=== PATIENT | female | born 1965 | race Caucasian/White ===

== ENCOUNTER 2018-07-23 10:11 | Inpatient (IN) | payer SELFPAY ==
[2018-07-23] MEDS ORDERED: NORMAL SALINE 1000 ML 1,000 ML IV ONE (10:26)
[2018-07-23] MEDS ORDERED: ONDANSETRON HCL INJ/PF 4 MG/2 ML SDV IV ONE (10:27)
--- NOTE | 2018-07-23 10:28 | ER Document Report ---
ED Medical Screen (RME) - General Chief Complaint: Abdominal Pain Stated Complaint: ABDOMINAL PAIN Time Seen by Provider: 07/23/18 10:19 Mode of Arrival: Ambulatory Information source: Patient Notes: This is a 52-year-old female with no significant medical problems who presents to the emergency room with lower abdominal pain, rectal pain and complaints that she passed pus (via rectum) in her sleep. She denies any danielle fever but reports nausea, chills and she looks in distress in the triage area. She states that her symptoms first started 5 weeks ago when she was evaluated at [facility] 1 week ago and was treated conservatively with nausea medicines. Patient states that the symptoms have just worsened. TRAVEL OUTSIDE OF THE [place] IN LAST 30 DAYS: No - Related Data Allergies/Adverse Reactions: No Known Allergies Allergy (Unverified 07/23/18 10:13) Past Medical History - Social History Chew tobacco use (# tins/day): No Frequency of alcohol use: Occasional Drug Abuse: None Renal/ Medical History: Denies: Hx Peritoneal Dialysis Physical Exam - Vital signs Vitals: Temp Pulse Resp BP Pulse Ox 97.9 F 103 H 14 115/86 H 98 07/23/18 10:18 07/23/18 10:18 07/23/18 10:18 07/23/18 10:18 07/23/18 10:18 Course - Vital Signs Vital signs: Temp Pulse Resp BP Pulse Ox 97.9 F 103 H 14 115/86 H 98 07/23/18 10:18 07/23/18 10:18 07/23/18 10:18 07/23/18 10:18 07/23/18 10:18
[2018-07-23 10:48] LABS: ABSOLUTE BASOPHILS # (AUTO) 0.1 10^3/uL (0.0-0.2); ABSOLUTE EOSINOPHILS # (AUTO) 0.1 10^3/uL (0.0-0.6); ABSOLUTE LYMPHOCYTES (AUTO) 1.9 10^3/uL (0.5-4.7); ABSOLUTE MONOCYTES (AUTO) 0.8 10^3/uL (0.1-1.4); ABSOLUTE NEUT (AUTO) 7.7 10^3/uL (1.7-8.2); BASOPHILS % (AUTO) 0.7 % (0-2); EOSINOPHILS % (AUTO) 0.9 % (0-6); HEMOGLOBIN 12.4 g/dL (12.0-15.5); LYMPHOCYTES % (AUTO) 18.1 % (13-45); MEAN CORPUSCULAR HEMOGLOBIN 28.1 pg (27.0-33.4); MEAN CORPUSCULAR HGB CONC 32.7 g/dL (32.0-36.0); MEAN CORPUSCULAR VOLUME 86 fl (80-97); MONOCYTES % (AUTO) 7.9 % (3-13); PLATELET COUNT 481 10^3/uL (150-450); RED BLOOD COUNT 4.43 10^6/uL (3.72-5.28); RED CELL DISTRIBUTION WIDTH 17.2 % (11.5-14.0); SEGMENTED NEUTROPHILS % (AUTO) 72.4 % (42-78); TOTAL CELLS COUNTED % (AUTO) 100 %; WHITE BLOOD COUNT 10.6 10^3/uL (4.0-10.5)
[2018-07-23 10:55] LABS: INTERNATIONAL RATION (INR) 1.11; PROTHROMBIN TIME 14.9 SEC (11.4-15.4)
[2018-07-23 11:09] LABS: ALANINE AMINOTRANSFERASE 42 U/L (9-52); ALBUMIN 4.1 g/dL (3.5-5.0); ALKALINE PHOSPHATASE 101 U/L (38-126); ANION GAP 14 (5-19); ASPARTATE AMINO TRANSFERASE 53 U/L (14-36); BILIRUBIN,DIRECT 0.5 mg/dL (0.0-0.4); BILIRUBIN,TOTAL 0.6 mg/dL (0.2-1.3); BLOOD UREA NITROGEN 5 mg/dL (7-20); CALCIUM 9.6 mg/dL (8.4-10.2); CARBON DIOXIDE 25 mmol/L (22-30); CHLORIDE 100 mmol/L (98-107); GLUCOSE 117 mg/dL (75-110); LIPASE 95.5 U/L (23-300); POTASSIUM 4.3 mmol/L (3.6-5.0); TOTAL PROTEIN 7.6 g/dL (6.3-8.2)
[2018-07-23 11:50] LABS: APPEARANCE,URINE CLOUDY; BILIRUBIN,URINE NEGATIVE (NEGATIVE); COLOR,URINE YELLOW; GLUCOSE, URINE NEGATIVE (NEGATIVE); KETONES,URINE NEGATIVE (NEGATIVE); LEUKOCYTE ESTERASE,URINE LARGE (NEGATIVE); NITRITE,URINE NEGATIVE (NEGATIVE); PROTEIN,URINE NEGATIVE (NEGATIVE); URINE SPECIFIC GRAVITY 1.003; UROBILINOGEN,URINE NEGATIVE mg/dL (<2.0)
[2018-07-23] MEDS ORDERED: CEFTRIAXONE 1 GM/D5W RTU 1 GM/50 ML RTUPB IV ONE (12:20)
--- NOTE | 2018-07-23 12:23 | ER Document Report ---
ED General - General Chief Complaint: Abdominal Pain Stated Complaint: ABDOMINAL PAIN Time Seen by Provider: 07/23/18 10:19 Mode of Arrival: Ambulatory TRAVEL OUTSIDE OF THE [place] IN LAST 30 DAYS: No - HPI Notes: Patient is a 52-year-old female no significant past medical history who presents the emergency department complaining of generalized abdominal pain primarily to her lower abdomen, rectal pain, nausea/vomiting/diarrhea, increased frequency of urination. Patient states that her abdominal symptoms have been ongoing for the last 5 weeks. Urinary symptoms started over the last week. She is still eating and drinking without difficulty, but does have a decreased p.o. intake. Patient states that she may have had pus from her rectum and her sleep. Patient states that she does notice occasional blood. No menstrual cycle in 10 years. She was seen at [facility] emergency department 1 week ago and was given diarrhea medicine. Denies drug allergies. She has not noticed any other vaginal odor or discharge. Denies any headache, fever, neck pain, URI, sore throat, chest pain, palpitations, syncope, cough, shortness of breath, wheeze, dyspnea, loss of control of bowel or bladder, numbness/tingling, saddle anesthesia, muscle paralysis/weakness, or rash. - Related Data Allergies/Adverse Reactions: No Known Allergies Allergy (Unverified 07/23/18 10:13) Past Medical History - General Information source: Patient - Social History Smoking Status: Current Every Day Smoker Chew tobacco use (# tins/day): No Frequency of alcohol use: Occasional Drug Abuse: None Family History: Reviewed & Not Pertinent Patient has suicidal ideation: No Patient has homicidal ideation: No Renal/ Medical History: Denies: Hx Peritoneal Dialysis Review of Systems - Review of Systems -: Yes All other systems reviewed and negative Physical Exam - Vital signs Vitals: Temp Pulse Resp BP Pulse Ox 97.9 F 103 H 14 115/86 H 98 07/23/18 10:18 07/23/18 10:18 07/23/18 10:18 07/23/18 10:18 07/23/18 10:18 - Notes Notes: PHYSICAL EXAMINATION: GENERAL: Well-appearing, well-nourished and in no acute distress. HEAD: Atraumatic, normocephalic. EYES: Pupils equal round and reactive to light, extraocular movements intact, sclera anicteric, conjunctiva are normal. ENT: Nares patent and without discharge. oropharynx clear without exudates. No tonsilar hypertrophy or erythema. Moist mucous membranes. NECK: Normal range of motion, supple without lymphadenopathy LUNGS: Breath sounds clear to auscultation bilaterally and equal. No wheezes rales or rhonchi. HEART: Regular rate and rhythm without murmurs, rubs, gallops. ABDOMEN: Soft, nondistended abdomen. No guarding, no rebound. Normal bowel sounds present. No CVA tenderness bilaterally. + tenderness generalized with focus to lower abdomen. Pelvic: No CMT or adnexal tenderness. Scant bloody with some cloudiness in the vaginal canal. Cx's obtained. (Accompanied by female nurse, Marly.) Rectal: No hemorrhoid or fissure noted. No obvious abscess. Non-tender. Brown stool noted. No melena or hematochezia. (accompanied by VON diego) Musculoskeletal: FROM to passive/active. Strength 5+/5. Extremities: No cyanosis, clubbing, or edema b/l. Peripheral pulses 2+. Capillary refill less than 3 seconds. NEUROLOGICAL: Normal speech, normal gait. PSYCH: Normal mood, normal affect. SKIN: Warm, Dry, normal turgor, no rashes or lesions noted. Course - Re-evaluation Re-evalutation: 07/23/18 16:46 Patient is an afebrile, well-hydrated, 32-year-old female who presents the emergency department with diverticulitis and UTI. There is question of possible pelvic infection as well. Vitals are acceptable without significant tachycardia, tachypnea, or hypoxia. PE is otherwise unremarkable. Pelvic exam was performed and swabs obtained. Patient has already she received Rocephin IV for the UTI and Zithromax has been ordered as well. Patient is nontoxic- appearing. See lab results as well as CT scan report. The general surgeon was consulted and Dr. Giang accepted pt for admission. Patient is in agreement with plan. - Vital Signs Vital signs: Temp Pulse Resp BP Pulse Ox 97.9 F 89 17 114/79 98 07/23/18 10:18 07/23/18 11:06 07/23/18 16:01 07/23/18 16:01 07/23/18 16:01 - Laboratory Result Diagrams: 07/23/18 10:35 07/23/18 10:35 Laboratory results interpreted by me: 07/23/18 07/23/18 07/23/18 10:35 10:35 10:55 WBC 10.6 H RDW 17.2 H Plt Count 481 H BUN 5 L Glucose 117 H Direct Bilirubin 0.5 H AST 53 H Urine Blood LARGE H Ur Leukocyte Esterase LARGE H Procedures - Pelvic Exam Pelvic exam Time completed: 16:40 Cultures obtained: Yes Wet prep obtained: Yes Witnessed by: VON Lukerock wool applicator - Discharge Clinical Impression: Diverticulitis, Acute UTI (urinary tract infection) Condition: Stable Disposition: ADMITTED INPATIENT Admitting Provider: Surgicalist - Dr. Giang Unit Admitted: Surgical Floor
[2018-07-23] MEDS ORDERED: MORPHINE SULFATE 10 MG/ML INJ IV ONE (13:46)
--- NOTE | 2018-07-23 15:49 | RADIOLOGY REPORT (SQ) ---
EXAM DESCRIPTION: CT ABD/PELVIS WITH IV ORAL COMPLETED DATE/TIME: 07/23/2018 3:19 pm REASON FOR STUDY: abd pain COMPARISON: None. TECHNIQUE: CT scan of the abdomen and pelvis performed using helical scanning technique with dynamic intravenous contrast injection. No oral contrast. Images reviewed with lung, soft tissue, and bone windows. Reconstructed coronal and sagittal MPR images reviewed. Delayed images for evaluation of the urinary system also acquired. All images stored on PACS. All CT scanners at this facility use dose modulation, iterative reconstruction, and/or weight based d osing when appropriate to reduce radiation dose to as low as reasonably achievable (ALARA). [facility]: Dose Right [facility]: CareDose [facility]: Dose Right [facility]: Teradose 4D [facility]: Airtime CONTRAST TYPE AND DOSE: contrast/concentration: Isovue 350.00 mg/ml; Total Contrast Delivered: 92.0 ml; Total Saline Delivered: 61.0 ml RENAL FUNCTION: Creatinine -0.82 BUN= 5 RADIATION DOSE: CT Rad equipment meets quality standard of care and radiation dose reduction techniq ues were employed. CTDIvol: 10.9 - 15.4 mGy. DLP: 1532 mGy-cm.. LIMITATIONS: None. FINDINGS: LOWER CHEST: Slight atelectasis and or scar in the left lingula and lower lobes posterior ly more so on the right. Intrathoracic herniation of the fundus -proximal body of the stomach, fat a nd small mesenteric vessels. LIVER: Fatty liver. Hepatomegaly. No masses. No dilated ducts. The hepatic and portal veins are patent. SPLEEN: Normal size. No focal lesions. PANCREAS: No masses. No significant calcifications. No adjacent inflammation or peripancreatic fluid collections. Pancreatic duct not dilated. GALLBLADDER: Gallstones. No inflammatory changes to suggest cholecystitis. ADRENAL GLANDS: No significant masses or asymmetry. RIGHT KIDNEY AND URETER: Extrarenal pelvis on the right, normal anatomic variant. Small well-define d hypoattenuated lesion in the upper pole of the kidney, CT numbers are slightly above water range. N o significant calcifications. No hydronephrosis or hydroureter. LEFT KIDNEY AND URETER: No solid masses. No significant calcifications. No hydronephrosis or hydr oureter. AORTA AND VESSELS: Mild atherosclerotic changes involving the abdominal aorta. No aneurysm. No diss ection. Renal arteries, SMA, celiac without stenosis. RETROPERITONEUM: No retroperitoneal adenopathy, hemorrhage or masses. BOWEL AND PERITONEAL CAVITY: Colonic diverticulosis, particularly in the region of the sigmoid colon with the wall is diffusely thickened. Linear soft tissue stranding and haziness involving the fat s urrounding the sigmoid colon, findings at diverticulitis. The wall of the rectosigmoid junction is a lso diffusely thickened. In the region of the cul-de-sac, an ill-defined soft tissue density-mass with associated foci of air. One of the largest measures 2.8 cm x 1.6 cm. It is difficult to separate this mass-like density fr om the anterior wall of the rectum and the adjacent uterus Considerations for this finding includes a bscess. No free fluid. APPENDIX: Normal. PELVIS: Small slightly enhancing hypoattenuated 1.7 x 1.6 cm mass in the posterior body of the uteru s may represent fibroid. Normal bladder. ABDOMINAL WALL: Very small fat containing umbilical hernia. Bilateral fat containing inguinal herni as. BONES: No significant or acute findings. OTHER: No other significant finding. IMPRESSION: 1. The constellation of findings as detailed above suggest colonic diverticulitis with associated abscess formation in the region of the cul-de-sac. Correlation suggested. 2. Small uterine fibroid. 3. Gallstones. 4. Bilateral fat containing inguinal hernias and very small fat containing umbilical hernia. 5. Fatty liver. Hepatomegaly. 6. A fairly well-defined hypoattenuated lesion in the upper pole of the right kidney. Further evalu ation with renal ultrasound to determine this represents a solid or cystic lesion. 7. Intrathoracic herniation of the fundus-proximal body of the stomach, fat and mesenteric vessels. COMMENT: 1. Results of this examination were discussed with emergency department provider on 019 at 15:35 hours. TECHNICAL DOCUMENTATION: JOB ID: [id number] Quality ID # [id number]: Final reports with documentation of one or more dose reduction techniques (e.g., Au tomated exposure control, adjustment of the mA and/or kV according to patient size, use of iterative reconstruction technique) 2010 [employer]- All Rights Reserved Reading location - IP/workstation name: [email or web address]
[2018-07-23] MEDS ORDERED: AZITHROMYCIN 250 MG TABLET PO ONE (16:40)
[2018-07-23 17:27] LABS: EPITHELIALS (WET MOUNT) 3+ EPITHELIALS SEEN; RBCS (WET MOUNT) 3+ RBCS SEEN; T.VAGINALIS (WET MOUNT) COULD NOT PERFORM; WBCS (WET MOUNT) FEW WBCS SEEN; YEAST (WET MOUNT) NO YEAST SEEN
[2018-07-23] MEDS: MORPHINE SULFATE 10 MG/ML INJ IV PRN ×2 (18:20→22:22)
--- NOTE | 2018-07-23 18:30 | EKG REPORT ---
SEVERITY:- BORDERLINE ECG - SINUS RHYTHM BORDERLINE T ABNORMALITIES, INFERIOR LEADS : Confirmed by: Gisselle Stovall MD 23-Jul-2018 18:30:19
[2018-07-23] MEDS: CIPROFLOXACIN 400 MG/D5W RTU 400 MG/200 ML RTUPB IV SCH (18:51)
[2018-07-23 18:55] LABS: CHLAM PCR NOT DETECTED (NOT DETECT); GON PCR NOT DETECTED (NOT DETECT)
[2018-07-23] MEDS: METRONIDAZOLE 500 MG/NS RTU 500 MG/100 ML RTUPB IV SCH (20:12)
--- NOTE | 2018-07-23 22:10 | PDOC H&P ---
History of Present Illness Patient complains of: Suprapubic abdominal pain History of Present Illness: SAADIA BAUER is a 52 year old female with a 1 month history of suprapubic abdominal pain. She reports that the pain radiates to her left lower quadrant. She has had intermittent fevers, chills, nausea, and vomiting. Patient was seen in an ER several days ago and was diagnosed with a gastroenteritis. The patient worsened and traveled to our emergency department for evaluation. A CT scan of the abdomen confirmed diverticulitis. The patient's pain is a 6 out of 10. It is sharp and stabbing. Palpation and movement make it worse, nothing makes it better. The patient denies chest pain, shortness of breath, headache, blurry vision, dizziness, weakness. She does report malaise, fatigue. Social History Smoking Status: Current Every Day Smoker Frequency of Alcohol Use: Occasional Hx Recreational Drug Use: Yes Drugs: Marijuana Family History Family History: Reviewed & Not Pertinent Parental Family History Reviewed: Yes Children Family History Reviewed: Yes Sibling(s) Family History Reviewed.: Yes Medication/Allergy Home Medications: Cetirizine HCl [Zyrtec 10 mg Tablet] 1 tab PO DAILY 07/23/18 Allergies/Adverse Reactions: No Known Allergies Allergy (Unverified 07/23/18 10:13) Review of Systems Constitutional: PRESENT: chills, fatigue, fever(s). ABSENT: anorexia, headache(s), weakness Eyes: ABSENT: visual disturbances Ears: ABSENT: hearing changes Nose, Mouth, and Throat: ABSENT: sore throat Cardiovascular: ABSENT: chest pain Respiratory: ABSENT: cough, dyspnea Gastrointestinal: PRESENT: abdominal pain, bloating, constipation, nausea, vomiting Genitourinary: PRESENT: dysuria Musculoskeletal: ABSENT: back pain Integumentary: ABSENT: pruritus, rash Neurological: ABSENT: confusion, convulsions, dizziness Psychiatric: ABSENT: anxiety, depression Endocrine: ABSENT: cold intolerance, heat intolerance Hematologic/Lymphatic: ABSENT: easy bleeding, easy bruising Physical Exam Vital Signs: Temp Pulse Resp BP Pulse Ox 97.9 F 89 17 114/79 98 07/23/18 10:18 07/23/18 11:06 07/23/18 16:01 07/23/18 16:01 07/23/18 16:01 Intake & Output 07/22/18 07/23/18 07/24/18 06:59 06:59 06:59 Intake Total 1050 Balance 1050 Weight 81.1 kg General appearance: PRESENT: no acute distress Head exam: PRESENT: atraumatic, normocephalic Eye exam: PRESENT: EOMI, PERRLA. ABSENT: scleral icterus Mouth exam: PRESENT: moist, neck supple Teeth exam: ABSENT: poor dentation Neck exam: ABSENT: meningismus, tenderness, thyromegaly, tracheal deviation Respiratory exam: PRESENT: clear to auscultation pancho, unlabored. ABSENT: chest wall tenderness, tachypnea, wheezes Cardiovascular exam: PRESENT: RRR Pulses: PRESENT: normal radial pulses Vascular exam: PRESENT: normal capillary refill. ABSENT: pallor GI/Abdominal exam: PRESENT: soft, tenderness - Suprapubic, mild/moderate. ABSENT: rebound Rectal exam: PRESENT: deferred Extremities exam: ABSENT: clubbing Musculoskeletal exam: ABSENT: deformity Neurological exam: PRESENT: alert, awake, oriented to person, oriented to place, oriented to time, oriented to situation, CN II-XII grossly intact Psychiatric exam: ABSENT: agitated, anxious, depressed Focused psych exam: ABSENT: delusional Skin exam: ABSENT: cyanosis, erythema, jaundice Results Laboratory Results: 07/23/18 10:35 07/23/18 10:35 07/23/18 07/23/18 07/23/18 10:35 10:35 10:35 WBC 10.6 H RBC 4.43 Hgb 12.4 Hct 38.0 MCV 86 MCH 28.1 MCHC 32.7 RDW 17.2 H Plt Count 481 H Seg Neutrophils % 72.4 Lymphocytes % 18.1 Monocytes % 7.9 Eosinophils % 0.9 Basophils % 0.7 Absolute Neutrophils 7.7 Absolute Lymphocytes 1.9 Absolute Monocytes 0.8 Absolute Eosinophils 0.1 Absolute Basophils 0.1 Sodium 139.0 Potassium 4.3 Chloride 100 Carbon Dioxide 25 Anion Gap 14 BUN 5 L Creatinine 0.82 Est GFR ( Amer) > 60 Est GFR (Non-Af Amer) > 60 Glucose 117 H Lactic Acid 1.7 Calcium 9.6 Total Bilirubin 0.6 AST 53 H ALT 42 Alkaline Phosphatase 101 Total Protein 7.6 Albumin 4.1 Lipase 95.5 Urine Color Urine Appearance Urine pH Ur Specific [place] Urine Protein Urine Glucose (UA) Urine Ketones Urine Blood Urine Nitrite Ur Leukocyte Esterase Urine WBC (Auto) Urine RBC (Auto) 07/23/18 10:55 WBC RBC Hgb Hct MCV MCH MCHC RDW Plt Count Seg Neutrophils % Lymphocytes % Monocytes % Eosinophils % Basophils % Absolute Neutrophils Absolute Lymphocytes Absolute Monocytes Absolute Eosinophils Absolute Basophils Sodium Potassium Chloride Carbon Dioxide Anion Gap BUN Creatinine Est GFR ( Amer) Est GFR (Non-Af Amer) Glucose Lactic Acid Calcium Total Bilirubin AST ALT Alkaline Phosphatase Total Protein Albumin Lipase Urine Color YELLOW Urine Appearance CLOUDY Urine pH 6.0 Ur Specific [place] 1.003 Urine Protein NEGATIVE Urine Glucose (UA) NEGATIVE Urine Ketones NEGATIVE Urine Blood LARGE H Urine Nitrite NEGATIVE Ur Leukocyte Esterase LARGE H Urine WBC (Auto) >182 Urine RBC (Auto) 8 Impressions: Abdomen/Pelvis CT 07/23/18 00:00 IMPRESSION: 1. The constellation of findings as detailed above suggest colonic diverticulitis with associated abscess formation in the region of the cul-de-sac. Correlation suggested. 2. Small uterine fibroid. 3. Gallstones. 4. Bilateral fat containing inguinal hernias and very small fat containing umbilical hernia. 5. Fatty liver. Hepatomegaly. 6. A fairly well-defined hypoattenuated lesion in the upper pole of the right kidney. Further evaluation with renal ultrasound to determine this represents a solid or cystic lesion. 7. Intrathoracic herniation of the fundus-proximal body of the stomach, fat and mesenteric vessels. Assessment & Plan - Diagnosis (1) Diverticulitis Is this a current diagnosis for this admission?: Yes - Plan Summary Plan Summary: 52-year-old female with diverticulitis. The patient reports symptoms for approximately 1 month prior to her diagnosis. I will admit the patient and start her on intravenous antibiotics. I will reevaluate her pain and symptoms in 48-72 hours. If the patient has no significant improvement, she may require sigmoid colectomy in the acute setting. This has been discussed at length with the patient. She is in agreement with the treatment plan.
[2018-07-23] MEDS: DEXTROSE 5%-LACTATED RINGERS 1,000 ML IV PRN (22:22)
[2018-07-24] MEDS: METRONIDAZOLE 500 MG/NS RTU 500 MG/100 ML RTUPB IV SCH ×3 (02:15→18:21)
[2018-07-24] MEDS: MORPHINE SULFATE 10 MG/ML INJ IV PRN ×5 (03:05→21:54)
[2018-07-24] MEDS: ONDANSETRON HCL INJ/PF 4 MG/2 ML SDV IV PRN ×4 (03:07→23:41)
[2018-07-24] MEDS: CIPROFLOXACIN 400 MG/D5W RTU 400 MG/200 ML RTUPB IV SCH ×2 (05:19→20:02)
[2018-07-24 07:34] LABS: ABSOLUTE EOSINOPHILS # (AUTO) 0.1 10^3/uL (0.0-0.6); ABSOLUTE LYMPHOCYTES (AUTO) 1.6 10^3/uL (0.5-4.7); ABSOLUTE MONOCYTES (AUTO) 0.6 10^3/uL (0.1-1.4); ABSOLUTE NEUT (AUTO) 7.3 10^3/uL (1.7-8.2); BASOPHILS % (AUTO) 0.5 % (0-2); EOSINOPHILS % (AUTO) 1.2 % (0-6); HEMATOCRIT 32.4 % (36.0-47.0); HEMOGLOBIN 10.5 g/dL (12.0-15.5); LYMPHOCYTES % (AUTO) 16.8 % (13-45); MEAN CORPUSCULAR HGB CONC 32.5 g/dL (32.0-36.0); MEAN CORPUSCULAR VOLUME 86 fl (80-97); MONOCYTES % (AUTO) 6.5 % (3-13); PLATELET COUNT 390 10^3/uL (150-450); RED BLOOD COUNT 3.77 10^6/uL (3.72-5.28); RED CELL DISTRIBUTION WIDTH 17.7 % (11.5-14.0); TOTAL CELLS COUNTED % (AUTO) 100 %; WHITE BLOOD COUNT 9.7 10^3/uL (4.0-10.5)
[2018-07-24 08:01] LABS: ALANINE AMINOTRANSFERASE 34 U/L (9-52); ALBUMIN 3.1 g/dL (3.5-5.0); ALKALINE PHOSPHATASE 74 U/L (38-126); ANION GAP 9 (5-19); ASPARTATE AMINO TRANSFERASE 37 U/L (14-36); BILIRUBIN,DIRECT 0.4 mg/dL (0.0-0.4); BILIRUBIN,TOTAL 0.4 mg/dL (0.2-1.3); BLOOD UREA NITROGEN 3 mg/dL (7-20); CALCIUM 8.5 mg/dL (8.4-10.2); CARBON DIOXIDE 26 mmol/L (22-30); CHLORIDE 104 mmol/L (98-107); GLUCOSE 102 mg/dL (75-110); POTASSIUM 3.8 mmol/L (3.6-5.0); SODIUM 139.4 mmol/L (137-145); TOTAL PROTEIN 6.1 g/dL (6.3-8.2)
[2018-07-24] MEDS: DEXTROSE 5%-LACTATED RINGERS 1,000 ML IV PRN (09:09)
--- NOTE | 2018-07-24 15:17 | PDOC PROGRESS REPORT ---
Subjective Progress Note for:: 07/24/18 Subjective:: feels a little better but still with lower abdominal pains Reason For Visit: DIVERTICULITIS Physical Exam Vital Signs: Temp Pulse Resp BP Pulse Ox 99.3 F 88 18 128/78 H 97 07/24/18 08:00 07/24/18 08:00 07/24/18 08:00 07/24/18 08:00 07/24/18 08:00 Intake & Output 07/23/18 07/24/18 07/25/18 06:59 06:59 06:59 Intake Total 2171 280 Balance 2171 280 Weight 81 kg Exam: abd is soft with mild tenderness LLQ and suprapubic areas. Results Laboratory Results: 07/24/18 06:47 07/24/18 06:47 07/24/18 07/24/18 06:47 06:47 WBC 9.7 RBC 3.77 Hgb 10.5 L Hct 32.4 L MCV 86 MCH 28.0 MCHC 32.5 RDW 17.7 H Plt Count 390 Seg Neutrophils % 75.0 Lymphocytes % 16.8 Monocytes % 6.5 Eosinophils % 1.2 Basophils % 0.5 Absolute Neutrophils 7.3 Absolute Lymphocytes 1.6 Absolute Monocytes 0.6 Absolute Eosinophils 0.1 Absolute Basophils 0.0 Sodium 139.4 Potassium 3.8 Chloride 104 Carbon Dioxide 26 Anion Gap 9 BUN 3 L Creatinine 0.77 Est GFR ( Amer) > 60 Est GFR (Non-Af Amer) > 60 Glucose 102 Calcium 8.5 Total Bilirubin 0.4 AST 37 H ALT 34 Alkaline Phosphatase 74 Total Protein 6.1 L Albumin 3.1 L Impressions: Abdomen/Pelvis CT 07/23/18 00:00 IMPRESSION: 1. The constellation of findings as detailed above suggest colonic diverticulitis with associated abscess formation in the region of the cul-de-sac. Correlation suggested. 2. Small uterine fibroid. 3. Gallstones. 4. Bilateral fat containing inguinal hernias and very small fat containing umbilical hernia. 5. Fatty liver. Hepatomegaly. 6. A fairly well-defined hypoattenuated lesion in the upper pole of the right kidney. Further evaluation with renal ultrasound to determine this represents a solid or cystic lesion. 7. Intrathoracic herniation of the fundus-proximal body of the stomach, fat and mesenteric vessels. Assessment & Plan - Diagnosis (1) Acute UTI (urinary tract infection) Is this a current diagnosis for this admission?: No (2) Diverticulitis Is this a current diagnosis for this admission?: Yes - Time Time Spent with patient: 15-24 minutes - Inpatient Certification Medical Necessity: Need For IV Fluids, Need for Pain Control, Need for IV Antibiotics - Plan Summary Plan Summary: Continue NPO today CHeck CBC in am Re-evaluate in am
[2018-07-25] MEDS: METRONIDAZOLE 500 MG/NS RTU 500 MG/100 ML RTUPB IV SCH ×3 (02:06→19:35)
[2018-07-25] MEDS: MORPHINE SULFATE 10 MG/ML INJ IV PRN ×2 (02:07→08:33)
[2018-07-25] MEDS: DEXTROSE 5%-LACTATED RINGERS 1,000 ML IV PRN ×2 (02:12→18:18)
[2018-07-25] MEDS: ONDANSETRON HCL INJ/PF 4 MG/2 ML SDV IV PRN ×2 (04:07→19:48)
[2018-07-25] MEDS: CIPROFLOXACIN 400 MG/D5W RTU 400 MG/200 ML RTUPB IV SCH ×2 (05:42→18:15)
--- NOTE | 2018-07-25 09:02 | PDOC PROGRESS REPORT ---
Subjective Progress Note for:: 07/25/18 Subjective:: no pains. hungry Reason For Visit: DIVERTICULITIS Physical Exam Vital Signs: Temp Pulse Resp BP Pulse Ox 98.3 F 76 18 116/83 98 07/25/18 07:48 07/25/18 07:48 07/25/18 07:48 07/25/18 07:48 07/25/18 07:48 Intake & Output 07/24/18 07/25/18 07/26/18 06:59 06:59 06:59 Intake Total 2171 2180 200 Balance 2171 2180 200 Weight 81 kg 87 kg Exam: Mild tenderness LLQ Results Laboratory Results: 07/24/18 06:47 07/24/18 06:47 07/23/18 10:55 Clean Catch Midstream Urine Culture - Final Escherichia Coli Impressions: Abdomen/Pelvis CT 07/23/18 00:00 IMPRESSION: 1. The constellation of findings as detailed above suggest colonic diverticulitis with associated abscess formation in the region of the cul-de-sac. Correlation suggested. 2. Small uterine fibroid. 3. Gallstones. 4. Bilateral fat containing inguinal hernias and very small fat containing umbilical hernia. 5. Fatty liver. Hepatomegaly. 6. A fairly well-defined hypoattenuated lesion in the upper pole of the right kidney. Further evaluation with renal ultrasound to determine this represents a solid or cystic lesion. 7. Intrathoracic herniation of the fundus-proximal body of the stomach, fat and mesenteric vessels. Assessment & Plan - Diagnosis (1) Acute UTI (urinary tract infection) Is this a current diagnosis for this admission?: No (2) Diverticulitis Is this a current diagnosis for this admission?: Yes - Time Time Spent with patient: 15-24 minutes - Inpatient Certification Medical Necessity: Need For IV Fluids, Need for IV Antibiotics - Plan Summary Plan Summary: Full liquids today Continue IV antibiotics
[2018-07-25] MEDS: KETOROLAC TROMETHAMINE INJ/PF 30 MG/1 ML SDV IV SCH ×2 (13:24→21:54)
[2018-07-26] MEDS: METRONIDAZOLE 500 MG/NS RTU 500 MG/100 ML RTUPB IV SCH ×3 (02:16→18:08)
[2018-07-26] MEDS: ONDANSETRON HCL INJ/PF 4 MG/2 ML SDV IV PRN ×2 (03:37→18:08)
[2018-07-26] MEDS: CIPROFLOXACIN 400 MG/D5W RTU 400 MG/200 ML RTUPB IV SCH ×2 (05:14→19:52)
[2018-07-26] MEDS: KETOROLAC TROMETHAMINE INJ/PF 30 MG/1 ML SDV IV SCH ×3 (05:15→22:22)
--- NOTE | 2018-07-26 10:13 | PDOC PROGRESS REPORT ---
Subjective Progress Note for:: 07/26/18 Subjective:: pt c/o nausea last night with eating pudding vomited last pm this am vasyl full liquids Reason For Visit: DIVERTICULITIS Physical Exam Vital Signs: Temp Pulse Resp BP Pulse Ox 97.9 F 74 16 133/89 H 98 07/26/18 07:44 07/26/18 07:44 07/26/18 07:44 07/26/18 07:44 07/26/18 07:44 Intake & Output 07/25/18 07/26/18 07/27/18 06:59 06:59 06:59 Intake Total 2180 3410 Balance 2180 3410 Weight 87 kg 88.9 kg GI/Abdominal exam: PRESENT: soft - abd soft with min llq tenderness passing flatus stool yestereday Results Laboratory Results: 07/24/18 06:47 07/24/18 06:47 07/23/18 10:55 Clean Catch Midstream Urine Culture - Final Escherichia Coli Impressions: Abdomen/Pelvis CT 07/23/18 00:00 IMPRESSION: 1. The constellation of findings as detailed above suggest colonic diverticulitis with associated abscess formation in the region of the cul-de-sac. Correlation suggested. 2. Small uterine fibroid. 3. Gallstones. 4. Bilateral fat containing inguinal hernias and very small fat containing umbilical hernia. 5. Fatty liver. Hepatomegaly. 6. A fairly well-defined hypoattenuated lesion in the upper pole of the right kidney. Further evaluation with renal ultrasound to determine this represents a solid or cystic lesion. 7. Intrathoracic herniation of the fundus-proximal body of the stomach, fat and mesenteric vessels. Assessment & Plan - Inpatient Certification Medical Necessity: Need For IV Fluids, Need for IV Antibiotics - Plan Summary Plan Summary: will cont with full liquids today cont iv abx possible dc home in am if she tolerates diet better.
[2018-07-26] MEDS: DEXTROSE 5%-LACTATED RINGERS 1,000 ML IV PRN (13:10)
[2018-07-27] MEDS: METRONIDAZOLE 500 MG/NS RTU 500 MG/100 ML RTUPB IV SCH ×2 (01:19→09:49)
[2018-07-27] MEDS: DEXTROSE 5%-LACTATED RINGERS 1,000 ML IV PRN (05:30)
[2018-07-27] MEDS: CIPROFLOXACIN 400 MG/D5W RTU 400 MG/200 ML RTUPB IV SCH (05:30)
[2018-07-27] MEDS: KETOROLAC TROMETHAMINE INJ/PF 30 MG/1 ML SDV IV SCH (05:31)
[2018-07-27 18:12] VITALS: BP 100/70
--- NOTE | 2018-07-28 15:47 | DISCHARGE SUMMARY E ---
Discharge Summary NAME: SAADIA BAUER : 1965 AGE: 52Y ADMITTED: 07/23/2018 DISCHARGED: 07/27/2018 FINAL DIAGNOSIS: ACUTE SIGMOID DIVERTICULITIS. HOSPITAL COURSE: This is a 52-year-old female, complaining of abdominal pains. She had a CT scan of the abdomen in the emergency department on 07/23/2018, which showed acute diverticulitis with micro perforation. She was immediately placed on IV antibiotics. and admitted. Her white count was slightly elevated on admission at 10.6, and came back to 9.0 the next day. Her pain also gradually subsided, and was able to have flatus and bowel movement. She was placed on clear liquids and soft diet, which she tolerated on the day of discharge. Her abdominal pains also subsided and essentially none on the day of discharge. She was then discharged on p.o. Cipro and Flagyl for 10 days as well as Toradol as needed for pain, and to be followed up in the surgical clinic in about two weeks. DICTATING PHYSICIAN: CHRISTIANO SPENCE M.D. [id number] PHY#: [id number] 2007 ID: [id number] JOB#: [id number] ACCT: [id number] cc:Valarie PATEL M.D. > MTDD
== END 2018-07-27 18:39 | disposition home or self-care (01) | DRG 392 ==
LOC: ER 10:11 → EH 18:40 → 2N 07-24 08:00
PROVIDERS: ADMIT Surgery; ATTEND Surgery
DX: K57.20 Diverticulitis of large intestine with perforation and abscess without bleeding (principal); N39.0 Urinary tract infection, site not specified; F17.200 Nicotine dependence, unspecified, uncomplicated; B96.20 Unspecified Escherichia coli [E. coli] as the cause of diseases classified elsewhere
CPT/HCPCS: 36415; 74177; 80053; 81001; 82962; 83605; 83690; 84702; 85025; 85610; 87086; 87088; 87186; 87210; 87491; 87591; 90471; 90686; 93005; 93010; 94799; 96361; 96365; 96375; 99285; G0008; J0696; J0744; J1885; J2270; J2405; J7030

== ENCOUNTER 2018-09-05 09:13 | Emergency (ER) | payer SELFPAY ==
[2018-09-05] MEDS ORDERED: HYDROMORPHONE HCL INJ/PF 2 MG/ML AMPULE IV ONE ×3 (10:49→19:12)
[2018-09-05] MEDS ORDERED: NORMAL SALINE 1000 ML 1,000 ML IV ONE (10:50)
--- NOTE | 2018-09-05 10:51 | ER Document Report ---
ED Medical Screen (RME) - General Chief Complaint: Abdominal Pain Stated Complaint: ABDOMINAL PAIN Time Seen by Provider: 09/05/18 10:39 Notes: 53-year-old female patient emergency department for evaluation of left lower quadrant pain. Patient was hospitalized in July with an abscess formation from diverticulitis. Has had persistent pain since that time and an abnormal drainage which appears to be somewhere between the vagina and the rectum but she is uncertain and wants this checked out as well. Went to see her primary care provider yesterday and they wanted to send her straight here but she could not come. Presents here today for evaluation. I have greeted and performed a rapid initial assessment of this patient. A comprehensive ED assessment and evaluation of the patient, analysis of test results and completion of the medical decision making process will be conducted by additional ED providers. TRAVEL OUTSIDE OF THE [place] IN LAST 30 DAYS: No - Related Data Allergies/Adverse Reactions: Penicillins Allergy (Verified 09/05/18 09:17) Past Medical History Renal/ Medical History: Denies: Hx Peritoneal Dialysis Psychiatric Medical History: Denies: Hx Depression Physical Exam - Vital signs Vitals: Temp Pulse Resp BP Pulse Ox 98.4 F 109 H 20 123/94 H 97 09/05/18 09:28 09/05/18 09:28 09/05/18 09:28 09/05/18 09:28 09/05/18 09:28 Course - Vital Signs Vital signs: Temp Pulse Resp BP Pulse Ox 98.4 F 109 H 20 123/94 H 97 09/05/18 09:28 09/05/18 09:28 09/05/18 09:28 09/05/18 09:28 09/05/18 09:28
[2018-09-05 11:11] LABS: APPEARANCE,URINE CLOUDY; BILIRUBIN,URINE NEGATIVE (NEGATIVE); COLOR,URINE YELLOW; GLUCOSE, URINE NEGATIVE (NEGATIVE); KETONES,URINE NEGATIVE (NEGATIVE); LEUKOCYTE ESTERASE,URINE LARGE (NEGATIVE); NITRITE,URINE NEGATIVE (NEGATIVE); PROTEIN,URINE NEGATIVE (NEGATIVE); URINE SPECIFIC GRAVITY 1.006; UROBILINOGEN,URINE NEGATIVE mg/dL (<2.0)
[2018-09-05 11:13] LABS: ABSOLUTE BASOPHILS # (AUTO) 0.1 10^3/uL (0.0-0.2); ABSOLUTE EOSINOPHILS # (AUTO) 0.2 10^3/uL (0.0-0.6); ABSOLUTE LYMPHOCYTES (AUTO) 1.7 10^3/uL (0.5-4.7); ABSOLUTE MONOCYTES (AUTO) 0.6 10^3/uL (0.1-1.4); ABSOLUTE NEUT (AUTO) 5.1 10^3/uL (1.7-8.2); BASOPHILS % (AUTO) 0.9 % (0-2); EOSINOPHILS % (AUTO) 2.4 % (0-6); HEMATOCRIT 39.3 % (36.0-47.0); HEMOGLOBIN 12.9 g/dL (12.0-15.5); LYMPHOCYTES % (AUTO) 22.6 % (13-45); MEAN CORPUSCULAR HEMOGLOBIN 28.5 pg (27.0-33.4); MEAN CORPUSCULAR HGB CONC 32.8 g/dL (32.0-36.0); MEAN CORPUSCULAR VOLUME 87 fl (80-97); MONOCYTES % (AUTO) 7.9 % (3-13); PLATELET COUNT 326 10^3/uL (150-450); RED BLOOD COUNT 4.51 10^6/uL (3.72-5.28); RED CELL DISTRIBUTION WIDTH 16.8 % (11.5-14.0); SEGMENTED NEUTROPHILS % (AUTO) 66.2 % (42-78); TOTAL CELLS COUNTED % (AUTO) 100 %; WHITE BLOOD COUNT 7.6 10^3/uL (4.0-10.5)
[2018-09-05 11:31] LABS: ALANINE AMINOTRANSFERASE 55 U/L (9-52); ALBUMIN 4.7 g/dL (3.5-5.0); ALKALINE PHOSPHATASE 106 U/L (38-126); ANION GAP 11 (5-19); ASPARTATE AMINO TRANSFERASE 65 U/L (14-36); BILIRUBIN,DIRECT 0.2 mg/dL (0.0-0.4); BILIRUBIN,TOTAL 0.6 mg/dL (0.2-1.3); BLOOD UREA NITROGEN 5 mg/dL (7-20); CALCIUM 10.1 mg/dL (8.4-10.2); CARBON DIOXIDE 29 mmol/L (22-30); CHLORIDE 102 mmol/L (98-107); GLUCOSE 112 mg/dL (75-110); LIPASE 140.5 U/L (23-300); POTASSIUM 4.7 mmol/L (3.6-5.0); SODIUM 142.3 mmol/L (137-145); TOTAL PROTEIN 8.2 g/dL (6.3-8.2)
[2018-09-05] MEDS ORDERED: CIPROFLOXACIN 400 MG/D5W RTU 400 MG/200 ML RTUPB IV ONE (11:31)
--- NOTE | 2018-09-05 11:37 | ER Document Report ---
ED GI/ - General TRAVEL OUTSIDE OF THE [place] IN LAST 30 DAYS: No <YOKASTA MAN - Last Filed: 09/05/18 11:32> <JUDAH KINSEY - Last Filed: 09/05/18 21:28> - General Chief Complaint: Abdominal Pain Stated Complaint: ABDOMINAL PAIN Time Seen by Provider: 09/05/18 10:39 Notes: 53-year-old female patient emergency department for evaluation of left lower quadrant pain. Patient was hospitalized in July with an abscess formation from diverticulitis. Has had persistent pain since that time and an abnormal drainage which appears to be somewhere between the vagina and the rectum but she is uncertain and wants this checked out as well. Went to see her primary care provider yesterday and they wanted to send her straight here but she could not come. Presents here today for evaluation. (YOKASTA MAN) - Related Data Allergies/Adverse Reactions: Penicillins Allergy (Verified 09/05/18 09:17) Past Medical History - Social History Smoking Status: Unknown if Ever Smoked Family History: Reviewed & Not Pertinent Patient has suicidal ideation: No Patient has homicidal ideation: No Renal/ Medical History: Denies: Hx Peritoneal Dialysis Psychiatric Medical History: Denies: Hx Depression <YOKASTA MAN - Last Filed: 09/05/18 11:32> Review of Systems - Review of Systems Constitutional: Chills, Fever Gastrointestinal: Abdominal pain, Nausea. denies: Vomiting Female Genitourinary: Vaginal discharge -: Yes All other systems reviewed and negative <YOKASTA MAN - Last Filed: 09/05/18 11:32> Physical Exam <YOKASTA MAN - Last Filed: 09/05/18 11:32> - Vital signs Vitals: Temp Pulse Resp BP Pulse Ox 98.4 F 109 H 20 123/94 H 97 09/05/18 09:28 09/05/18 09:28 09/05/18 09:28 09/05/18 09:28 09/05/18 09:28 - Notes Notes: GENERAL_APPEARANCE: well_nourished, alert, cooperative, no_acute_distress, no_obvious_discomfort. VITALS: reviewed, see vital signs table. HEAD: no_swelling\tenderness on the head. EYES: PERRL, EOMI, conjunctiva_clear. NOSE: no_nasal_discharge. MOUTH: (-)decreased moisture. THROAT: no_tonsilar_inflammation, no_airway_obstruction. no_lymphadenopathy NECK: supple, no_neck_tenderness, (-)thyromegaly. BACK: no_back_tenderness. CHEST_WALL: no_chest_tenderness. LUNGS: no_wheezing, no_rales, no_rhonchi, (-)accessory muscle use, good air exchange bilateral. HEART: normal_rate, normal_rhythm, normal_S1, normal_S2, (-)S3, (-)S4, no_murmur, no_rub. ABDOMEN: soft, left lower quadrant_abd_tenderness, (-)guarding, (-)rebound, no_organomegaly, no_abd_masses. PELVIC: EXTREMITIES: good pulses in all_extremities, no_swelling\tenderness in the extremities, no_edema. SKIN: warm, dry, good_color, no_rash. MENTAL_STATUS: speech_clear, oriented_X_3, normal_affect, responds_appropriately to questions. (YOKASTA MAN) Course - Laboratory Result Diagrams: 09/05/18 10:56 09/05/18 10:56 <YOKASTA MAN E - Last Filed: 09/05/18 11:32> - Laboratory Result Diagrams: 09/05/18 10:56 09/05/18 10:56 - Diagnostic Test Radiology reviewed: Image reviewed, Reports reviewed <JUDAH KINSEY E - Last Filed: 09/05/18 21:28> - Re-evaluation Re-evalutation: 09/05/18 11:37 The patient had a history of diverticulitis with microperforation and abscess. We will rescan the patient give her some IV antibiotics also complains of vaginal discharge we will get a pelvic exam and look to see if there is any kind of fistulous formation due to the abscess. (YOKASTA MAN) 09/05/18 15:39 Patient received in sign out awaiting surgery consultation. I did speak to Dr. Pettit that believes that there is a fistula that may involve either the b ladder or uterine wall. CAT scan report today does not mention this. I did talk to Dr. Villafuerte who reviewed the CAT scan that was performed today and states that she does see a fistula between the sigmoid colon and the vaginal wall. [facility] was contacted for transfer. 09/05/18 15:[address] Fierro from [facility] who is a hospitalist and believes that the patient would be better suited being admitted by [facility] at this time. Transfer center will call me back. 09/05/18 16:[address] Judd [facility] surgeon at [facility] who [facility] agreed [facility]. Patient agreeable with transfer. Images pushed to [facility]. Dr. Villafuerte to write an addendum to previous report of CT that was performed today. 09/05/18 17:39 Informed that transport will arrive at approximately 8 PM. 09/05/18 21:18 Patient was reevaluated upon transfer team arrival at 2030. She is alert, awake and with stable vital signs. (JUDAH KINSEY) - Vital Signs Vital signs: Temp Pulse Resp BP Pulse Ox 97.3 F 82 18 148/102 H 97 09/05/18 18:55 09/05/18 18:55 09/05/18 18:55 09/05/18 18:55 09/05/18 18:55 - Laboratory Laboratory results interpreted by me: 09/05/18 09/05/18 09/05/18 10:56 10:56 10:56 RDW 16.8 H BUN 5 L Glucose 112 H AST 65 H ALT 55 H Urine Blood SMALL H Ur Leukocyte Esterase LARGE H Critical Care Note - Critical Care Note Total time excluding time spent on procedures (mins): 35 - Minutes of critical care time spent in direct contact evaluating and reevaluating the patient, treating symptoms, reviewing labs and studies and speaking with family and consultants excluding any procedures <JUDAH KINSEY E - Last Filed: 09/05/18 21:28> Discharge <YOKASTA MAN - Last Filed: 09/05/18 11:32> <JUDAH KINSEY - Last Filed: 09/05/18 21:28> - Discharge Clinical Impression: Colovaginal fistula Abdominal pain Qualifiers: Abdominal location: unspecified location Qualified Code(s): R10.9 - Unspecified abdominal pain Hypertension Qualifiers: Hypertension type: unspecified Qualified Code(s): I10 - Essential (primary) hypertension Condition: Good Disposition: [facility] Forms: Elevated Blood Pressure
[2018-09-05] MEDS ORDERED: METRONIDAZOLE 500 MG/NS RTU 500 MG/100 ML RTUPB IV ONE (12:00)
[2018-09-05 12:11] LABS: BACTERIA (WET MOUNT) 4+ BACTERIA SEEN; RBCS (WET MOUNT) 2+ RBCS SEEN; T.VAGINALIS (WET MOUNT) NO TRICHOMONAS SEEN; WBCS (WET MOUNT) 4+ WBCS SEEN; YEAST (WET MOUNT) NO YEAST SEEN
[2018-09-05 13:33] LABS: CHLAM PCR NOT DETECTED (NOT DETECT); GON PCR NOT DETECTED (NOT DETECT)
--- NOTE | 2018-09-05 14:08 | RADIOLOGY REPORT (SQ) ---
EXAM DESCRIPTION: CT ABD/PELVIS WITH IV ORAL COMPLETED DATE/TIME: 09/05/2018 1:36 pm REASON FOR STUDY: LLQ pain COMPARISON: 07/23/2018 TECHNIQUE: CT scan of the abdomen and pelvis performed using helical scanning technique with dynamic intravenous contrast injection. No oral contrast. Images reviewed with lung, soft tissue, and bone windows. Reconstructed coronal and sagittal MPR images reviewed. Delayed images for evaluation of the urinary system also acquired. All images stored on PACS. All CT scanners at this facility use dose modulation, iterative reconstruction, and/or weight based d osing when appropriate to reduce radiation dose to as low as reasonably achievable (ALARA). [facility]: Dose Right [facility]: CareDose [facility]: Dose Right [facility]: Teradose 4D [facility]: [employer] CONTRAST TYPE AND DOSE: contrast/concentration: Isovue 350.00 mg/ml; Total Contrast Delivered: 90.0 ml; Total Saline Delivered: 70.0 ml RENAL FUNCTION: BUN 5 creatinine 0.77 RADIATION DOSE: CT Rad equipment meets quality standard of care and radiation dose reduction techniq ues were employed. CTDIvol: 10.1 - 14.2 mGy. DLP: 1354 mGy-cm.. LIMITATIONS: None. FINDINGS: LOWER CHEST: Stable 10 mm ground-glass nodule in the right lower lobe posteriorly. Hiatal hernia. LIVER: Diffusely hypoattenuating. No mass. SPLEEN: Normal size. No focal lesions. PANCREAS: No masses. No significant calcifications. No adjacent inflammation or peripancreatic fluid collections. Pancreatic duct not dilated. GALLBLADDER: Cholelithiasis. ADRENAL GLANDS: No significant masses or asymmetry. RIGHT KIDNEY AND URETER: No solid masses. No significant calcifications. No hydronephrosis or hyd roureter. LEFT KIDNEY AND URETER: No solid masses. No significant calcifications. No hydronephrosis or hydr oureter. AORTA AND VESSELS: No aneurysm. No dissection. Renal arteries, SMA, celiac without stenosis. RETROPERITONEUM: No retroperitoneal adenopathy, hemorrhage or masses. BOWEL AND PERITONEAL CAVITY: Extensive colonic diverticulosis. Most prominent in the sigmoid area. No acute associated inflammation. APPENDIX: Normal. PELVIS: No mass. No free fluid. Normal bladder. ABDOMINAL WALL: No masses. No hernias. BONES: Likely hemangioma at L3. OTHER: No other significant finding. IMPRESSION: 1. Stable 10 mm ground-glass nodule in the right lower lobe. 2. Hiatal hernia. 3. Fatty infiltration of the liver. 4. Extensive diverticulosis coli. 5. Cholelithiasis. COMMENT: Fleischner Criteria for Ground Glass Nodules: >6-8mm part solid single nodule: CT 3-6 mo to confirm persistence, if unchanged solid component remai ns < 6mm annual CT should be performed for 5 yrs. TECHNICAL DOCUMENTATION: JOB ID: [id number] Quality ID # [id number]: Final reports with documentation of one or more dose reduction techniques (e.g., Au tomated exposure control, adjustment of the mA and/or kV according to patient size, use of iterative reconstruction technique) 2010 [employer]- All Rights Reserved Reading location - IP/workstation name: [email or web address]
[2018-09-05 18:56] VITALS: BP 148/102
== END 2018-09-05 21:50 | disposition short-term general hospital (02) ==
LOC: ER 09:13
DX: N82.3 Fistula of vagina to large intestine (principal); R10.32 Left lower quadrant pain; R50.9 Fever, unspecified; R11.0 Nausea; N89.8 Other specified noninflammatory disorders of vagina; I10 Essential (primary) hypertension; Z87.19 Personal history of other diseases of the digestive system; Z88.0 Allergy status to penicillin
CPT/HCPCS: 96376; 99291; 96361; 96375; 96365; 96366; 96368; 36415; 87210; 83690; 85025; 80053; 81001; 87491; 87591; 74177; J1170; J7030; J0744